=== PATIENT | male | born 1975 | race Caucasian/White ===

== ENCOUNTER 2018-11-14 22:47 | Observation (INO) | payer OTHER ==
[2018-11-14] MEDS ORDERED: ASPIRIN 81 MG PO STA (23:06)
--- NOTE | 2018-11-14 23:06 | ED ---
Chest Pain HPI - General Chief Complaint: Chest Pain Stated Complaint: Chest Pain Time Seen by Provider: 11/14/18 23:00 Source: patient, family Mode of arrival: ambulatory - History of Present Illness Initial Comments: Recent is a 43-year-old gentleman with a past medical history of hypertension, hyperlipidemia and obesity who presents to the emergency department today for evaluation of chest pain. Patient reports he had a stressful day at work today, he reports that around 4 in the afternoon he developed some stabbing retrosternal chest pain with radiation to the left shoulder. Upon returning home patient notes that he also developed a headache and nosebleed and thought that maybe all the stress made his blood pressure go up. Patient reports that he tried to rest and apply cold compress to and he took a shower however his headache resolved his nosebleed resolved but he continued to have stabbing left- sided chest pain radiating to his left shoulder. Patient decided to tell his brother about this pain and is planning to come to the emergency department in the morning if pain persisted however his brother encouraged him to come to the ER immediately for evaluation. Patient does have a strong family history of heart disease, his father at the age of 54 from acute pulmonary embolism. He denies any exertional chest pain, he works in [employer] business and is able to perform his regular work and activities without pain however this afternoon he has pain that does not resolve with rest. - Related Data Home Medications Medication Instructions Recorded Confirmed Atorvastatin [Lipitor] 40 mg PO DAILY 11/14/18 11/14/18 Benazepril HCl 40 mg PO DAILY 11/14/18 11/14/18 Doxazosin (Unknown Dose) 1 tab PO DAILY 11/14/18 11/14/18 Hydrocodone/Acetaminophen [[place] 1 tab PO TID PRN 11/14/18 11/14/18 7.5-325] Ibuprofen [Motrin] 800 mg PO TID PRN 11/14/18 11/14/18 Ranitidine HCl [Zantac] 150 mg PO BID 11/14/18 11/14/18 busPIRone HCl [Buspar] 10 mg PO BID PRN 11/14/18 11/14/18 traZODone HCL 100 mg PO HS 11/14/18 11/14/18 Allergies Allergy/AdvReac Type Severity Reaction Status Date / Time No Known Allergies Allergy Verified 11/14/18 23:10 Review of Systems ROS Statement: Those systems with pertinent positive or pertinent negative responses have been documented in the HPI. ROS Other: All systems not noted in ROS Statement are negative. Past Medical History Past Medical History: Hyperlipidemia, Hypertension Past Surgical History: Cholecystectomy Additional Past Surgical History / Comment(s): right testicle removal 2004 Past Psychological History: No Psychological Hx Reported Smoking Status: Never smoker Past Alcohol Use History: Occasional Past Drug Use History: None Reported General Exam - General Exam Comments Initial Comments: Physical Exam GENERAL: Patient is well-developed and well-nourished. Patient is nontoxic and well- hydrated and is in no distress. HENT: Normocephalic, Atraumatic. EYES: PERRL, EOMI PULMONARY: Unlabored respirations. No audible rales rhonchi or wheezing was noted. CARDIOVASCULAR: There is a regular rate and rhythm without any murmurs gallops or rubs. ABDOMEN: Soft and nontender with normal bowel sounds. SKIN: Skin is clear with no lesions or rashes and otherwise unremarkable. : Deferred NEUROLOGIC: Patient is alert and oriented x3. Moving all extremities spontaneously MUSCULOSKELETAL: Normal extremities with adequate strength and full range of motion. No lower extremity swelling or edema. No calf tenderness. PSYCHIATRIC: Normal psychiatric evaluation Course Vital Signs 11/14/18 11/14/18 11/15/18 22:50 23:32 00:26 Temperature 97.4 F L 98 F Pulse Rate 88 79 86 Respiratory 19 18 18 Rate Blood Pressure 165/110 136/95 124/92 O2 Sat by Pulse 97 98 95 Oximetry Chest Pain MDM - [facility] Patient was seen and evaluated, history is obtained from the patient Patient with left-sided chest pain radiating to the left shoulder, patient also had headache and nosebleed earlier in the day he does have a history of hypertension, this resolved after he took a cold shower however he continued to have chest pain. On arrival the patient is hypertensive 165/110 a full cardiac workup was ordered x-ray and labs are unremarkable however the patient does have multiple risk factors for heart disease including hypertension, hyperlipidemia, obesity and family history as well as male gender, patient was presenting with classic cardiac symptoms at this time I feel the patient would benefit from admission to the hospital for further cardiac workup. care was discussed with the patient's primary care physician Dr. Foster who agrees with plan for placement patient in observation for consult to cardiology. Disposition Clinical Impression: Chest pain Disposition: ADMITTED IP TO THIS HOSP Condition: Stable Referrals: Dayne Foster MD [Primary Care Provider] - 1-2 days
[2018-11-14 23:23] LABS: Basophils # (A) 0.1 k/uL (0-0.2); Basophils % (A) 1 %; Eosinophils # (A) 0.4 k/uL (0-0.7); Eosinophils % (A) 6 %; HCT 44.8 % (39.0-53.0); HGB 14.7 gm/dL (13.0-17.5); Lymphocytes # (A) 1.8 k/uL (1.0-4.8); Lymphocytes % (A) 28 %; MCH 30.2 pg (25.0-35.0); MCHC 32.9 g/dL (31.0-37.0); MCV 91.6 fL (80.0-100.0); Mean Platelet Volume 7.2; Monocytes # (A) 0.5 k/uL (0-1.0); Monocytes % (A) 7 %; Neutrophils # (A) 3.8 k/uL (1.3-7.7); Neutrophils % (A) 57 %; Platelet Count 219 k/uL (150-450); RBC 4.89 m/uL (4.30-5.90); RDW 12.8 % (11.5-15.5); WBC 6.7 k/uL (3.8-10.6)
[2018-11-14 23:34] LABS: ALT 45 U/L (21-72); AST 46 U/L (17-59); African American GFR (CKD) >90 (>60 ml/min/1.73 sqM); Albumin 4.8 g/dL (3.5-5.0); Alkaline Phosphatase 41 U/L (38-126); Anion Gap 10 mmol/L; Blood Urea Nitrogen 19 mg/dL (9-20); Calcium 9.4 mg/dL (8.4-10.2); Carbon Dioxide 25 mmol/L (22-30); Chloride 107 mmol/L (98-107); Glucose 99 mg/dL (74-99); Magnesium 2.1 mg/dL (1.6-2.3); Sodium 142 mmol/L (137-145); Total Bilirubin 0.8 mg/dL (0.2-1.3); Total Protein 8.1 g/dL (6.3-8.2)
--- NOTE | 2018-11-14 23:35 | XR ---
INDICATION: Chest pain COMPARISON: None FINDINGS: Frontal and lateral views of the chest are obtained. The cardiomediastinal silhouette and pulmonary vascularity are within normal limits. Lungs are clear. No pleural the effusion or pneumothorax. Mild degenerative changes of the thoracic spine. No acute osseous findings. IMPRESSION: No acute cardiopulmonary disease.
[2018-11-14 23:38] LABS: Potassium 4.2 mmol/L (3.5-5.1)
[2018-11-14 23:54] LABS: INR 0.9 (<1.2); Partial Thromboplastin Time 25.6 sec (22.0-30.0); Prothrombin Time 10.2 sec (9.0-12.0)
[2018-11-15] MEDS ORDERED: NITROGLYCERIN SL TABS 0.4 MG TAB SUBLINGUAL STA (00:45)
[2018-11-15] MEDS: NITROGLYCERIN OINT 1 INCH/GM PACKET TOPICAL SCH ×3 (01:20→11:52)
[2018-11-15] MEDS ORDERED: METOPROLOL TARTRATE 5 MG/5 ML VIAL IVP ONE (08:04)
[2018-11-15] MEDS ORDERED: DOBUTamine DRIP for NUC MED 500 MG in DEXTROSE/WATER 1 250ML.BAG IV ONE (09:09)
[2018-11-15 09:21] VITALS: BMI 38.8
[2018-11-15] MEDS ORDERED: IBUPROFEN 800 MG TAB PO PRN (10:34)
[2018-11-15] MEDS ORDERED: ATROPINE SULFATE 0.1 MG/ML 10ML SYRINGE ONE (10:40)
[2018-11-15] MEDS ORDERED: LISINOPRIL 20 MG TAB PO SCH (10:45)
[2018-11-15] MEDS ORDERED: FAMOTIDINE 20 MG TAB PO SCH (10:45)
[2018-11-15] MEDS ORDERED: DOXAZOSIN 4 MG TAB PO SCH (10:45)
[2018-11-15 11:28] VITALS: BP 120/87; PULSE 80; RESP 16; TEMP 98.2
--- NOTE | 2018-11-15 11:32 | P.STRESS ---
- Stress Test Note Stress Test Results/Findings: Exam Performed: dobutamine stress echo Exam Date: 11/15/18 Reason for Exam: CHEST PAIN Height: 6 ft 3 in Weight: 141.067 kg Protocol: DOBUTAMINE STRESS ECHO Stage: 5 Duration of Exercise: 13:49 MINUTES Resting Heart Rate: 63 Resting Blood Pressure: 121/79 Maximum Achieved Heart Rate: 158 Maximum Achieved Blood Pressure: 170/53 85% PMHR: 15 100% PMHR: 176 METS: ------- Technologist Comment: 1 mg ATROPINE GIVEN & 2.5 mg LOPRESSOR GIVEN Stress Test Results/Findings: This is a 43-year-old gentleman with history of hypertension, hypercholesterolemia and family history of ischemic heart disease and also smoking history was admitted to the hospital with chest pain. Stress data: Baseline EKG showed sinus rhythm with normal NM interval and QRS duration. Blood pressure at rest is 120/79, pulse rate of 63. A standard dose of dobutamine was initiated at 10 mics and was titrated to maximum 40 mics, achieving a maximal heart rate of 158 with a blood pressure 168/53. EKGs taken during and after the exercise did not reveal any significant changes to sized ischemia. Cardiac arrhythmia in the form of PVCs and bigeminal pattern was noted during dobutamine infusion. New Echo data: Baseline echo images showed normal wall motion and thickening. Images taken at low-dose and high-dose dobutamine showed progressive augmentation of wall motion and thickening in all segments. Final impression: #1. Negative dobutamine stress test #2. Negative dobutamine stress echo
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
--- NOTE | 2018-11-15 13:03 | DS ---
DISCHARGE SUMMARY CHIEF COMPLAINT: Chest pain. HISTORY OF PRESENT ILLNESS AND PHYSICAL EXAM: Details of this man's history and physical can be found in the initial workup. LABORATORY STUDIES: While he was in a hospital he had laboratory studies, details of which can be found in the laboratory section of his chart. COURSE IN HOSPITAL: After admission, he was placed on bedrest, started on intravenous fluids and serial EKGs and enzymes are normal. He was seen by Cardiology and taken for a stress study which was negative. It was felt he could be discharged. He will go home on his usual activity, diet and medication and will add aspirin 1 tablet a day. He will be seen in the office in several days. FINAL DIAGNOSES: 1. Atypical chest pain. 2. Hypertension. OPERATIONS: None. CONSULTATION: Cardiology. He is improved. MMJIMBOL / BAMBI: [id number] /
[2018-11-15] MEDS ORDERED: traZODone HCL 100 MG TAB PO SCH (21:00)
[2018-11-16] MEDS ORDERED: ASPIRIN 325 MG TAB PO SCH (09:00)
--- NOTE | 2018-11-17 17:05 | ECHOS ---
Stress Test Results/Findings: Exam Performed: dobutamine stress echo Exam Date: 11/15/18 Reason for Exam: CHEST PAIN Height: 6 ft 3 in Weight: 141.067 kg Protocol: DOBUTAMINE STRESS ECHO Stage: 5 Duration of Exercise: 13:49 MINUTES Resting Heart Rate: 63 Resting Blood Pressure: 121/79 Maximum Achieved Heart Rate: 158 Maximum Achieved Blood Pressure: 170/53 85% PMHR: 15 100% PMHR: 176 METS: ------- Technologist Comment: 1 mg ATROPINE GIVEN & 2.5 mg LOPRESSOR GIVEN Stress Test Results/Findings: This is a 43-year-old gentleman with history of hypertension, hypercholesterolemia and family history of ischemic heart disease and also smoking history was admitted to the hospital with chest pain. Stress data: Baseline EKG showed sinus rhythm with normal NE interval and QRS duration. Blood pressure at rest is 120/79, pulse rate of 63. A standard dose of dobutamine was initiated at 10 mics and was titrated to maximum 40 mics, achieving a maximal heart rate of 158 with a blood pressure 168/53. EKGs taken during and after the exercise did not reveal any significant changes to sized ischemia. Cardiac arrhythmia in the form of PVCs and bigeminal pattern was noted during dobutamine infusion. New Echo data: Baseline echo images showed normal wall motion and thickening. Images taken at low-dose and high-dose dobutamine showed progressive augmentation of wall motion and thickening in all segments. Final impression: #1. Negative dobutamine stress test #2. Negative dobutamine stress echo MTDD
== END 2018-11-15 12:25 | disposition home or self-care (01) ==
LOC: EC 22:47 → 1SOBS 11-15 00:54
PROVIDERS: ADMIT Family Medicine; ATTEND Family Medicine
DX: R07.89 Other chest pain (principal); R04.0 Epistaxis; R06.02 Shortness of breath; R61 Generalized hyperhidrosis; I10 Essential (primary) hypertension; E78.00 Pure hypercholesterolemia, unspecified; E78.5 Hyperlipidemia, unspecified; F41.9 Anxiety disorder, unspecified; E66.9 Obesity, unspecified; Z68.38 Body mass index [BMI] 38.0-38.9, adult; Z79.899 Other long term (current) drug therapy; Z90.49 Acquired absence of other specified parts of digestive tract; Z90.79 Acquired absence of other genital organ(s); Z87.891 Personal history of nicotine dependence; Z91.030 Bee allergy status; Z82.49 Family history of ischemic heart disease and other diseases of the circulatory system
CPT/HCPCS: 99285; 36415; 93005; 93351; 85379; 80053; 83735; 84484 ×2; 85025; 85610; 85730; 71046; G0378; J1250; J0461

== ENCOUNTER 2019-05-13 04:21 | Emergency (ER) | payer OTHER ==
--- NOTE | 2019-05-13 04:25 | ED ---
Back Pain HPI - General Stated Complaint: fall Time Seen by Provider: 05/13/19 04:24 - History of Present Illness Initial Comments: Markie is a pleasant 44-year-old gentleman is brought to the ER today by ambulance for evaluation of back pain. Patient states that he has had chronic back pain for a number of years she follows with neurology. He had an epidural injection today for his back pain and reports he was feeling so good that he decided to go out and sink area okay. Patient states he is feeling great step off the stage funny and heard a pop in his back. Pain progressively worsened throughout the rest the evening feeling like a muscle spasm in his right lower back. Patient left the bar and went home around 2 AM and after laying in bed for over an hour couldn't tolerate the pain anymore and decided to come to the ER for further evaluation. Patient states he doesn't have any weakness in his legs that the only reason he can't walk is due to pain. He doesn't have any numbness tingling. He's had no trouble urinating since the pain began. No saddle anesthesia. Patient states he knows that to answer all his questions because he is asked about every time he is evaluated for back pain. - Related Data Home Medications Medication Instructions Recorded Confirmed Atorvastatin [Lipitor] 40 mg PO DAILY 11/14/18 11/14/18 Benazepril HCl 40 mg PO DAILY 11/14/18 11/14/18 Hydrocodone/Acetaminophen [[place] 1 tab PO TID PRN 11/14/18 11/14/18 7.5-325] Ibuprofen [Motrin] 800 mg PO TID PRN 11/14/18 11/14/18 Ranitidine HCl [Zantac] 150 mg PO BID 11/14/18 11/14/18 busPIRone HCl [Buspar] 10 mg PO BID PRN 11/14/18 11/14/18 traZODone HCL 100 mg PO HS 11/14/18 11/14/18 Doxazosin [Cardura] 4 mg PO DAILY 11/15/18 11/15/18 Previous Rx's Medication Instructions Recorded Aspirin 325 mg PO DAILY #100 tab 11/15/18 Allergies Allergy/AdvReac Type Severity Reaction Status Date / Time No Known Allergies Allergy Verified 11/14/18 23:10 Review of Systems ROS Statement: Those systems with pertinent positive or pertinent negative responses have been documented in the HPI. ROS Other: All systems not noted in ROS Statement are negative. Past Medical History Past Medical History: GERD/Reflux, Hyperlipidemia, Hypertension, Pneumonia Additional Past Medical History / Comment(s): Bronchitis as a child, chronic low back pain (2 bulging discs) and chronic cervical pain (deteriorating cervical discs) History of Any Multi-Drug Resistant Organisms: None Reported Past Surgical History: Cholecystectomy Additional Past Surgical History / Comment(s): right testicle removal 2004 Past Anesthesia/Blood Transfusion Reactions: No Reported Reaction Smoking Status: Former smoker - Past Family History Father Family Medical History: Pulmonary Embolus Additional Family Medical History / Comment(s): Father of a PE at the age of 54 yrs. Mother Family Medical History: Diabetes Mellitus Additional Family Medical History / Comment(s): Mother had multiple fractures R side of body post fall and was wheelchair bound. She is . General Exam - General Exam Comments Initial Comments: Physical Exam GENERAL: Patient is well-developed and well-nourished. Patient is nontoxic and well-hydrated and is in no distress. HENT: Normocephalic, Atraumatic. EYES: PERRL, EOMI PULMONARY: Unlabored respirations. CARDIOVASCULAR: RRR Warm and well perfused extremities ABDOMEN: Non-distended SKIN: No rashes or bruising : Deferred NEUROLOGIC: Alert and oriented Normal speech MUSCULOSKELETAL: Moving all extremities Normal strength and sensation in lower extremities Back exam with very small injection point the lower lumbar spine, no large hematoma. There is a likely lipoma lateral to the injection site patient reports this is chronic and unchanged. No tenderness to bony palpation. PSYCHIATRIC: No SI/HI Course Vital Signs 05/13/19 04:24 Temperature 97.6 F Pulse Rate 67 Respiratory 18 Rate Blood Pressure 107/76 O2 Sat by Pulse 98 Oximetry Medical Decision Making - Medical Decision Making The patient was seen and evaluated history is obtained from patient. Patient reports he overdid it with physical activity after receiving an epidural injection in his back today. Patient reports he is taking advantage of being pain-free and subsequently injured his back. Unable to tolerate the pain. No red flag symptoms. Patient received IM analgesia and muscle relaxers. Upon reevaluation pain had decreased from 10 out of 10 to a 4 out of 10 was tolerable patient was comfortable with plan for discharge home. Disposition Clinical Impression: Mechanical back pain Disposition: HOME SELF-CARE Condition: Stable Instructions (If sedation given, give patient instructions): Acute Low Back Pain (ED) Is patient prescribed a controlled substance at d/c from ED?: No Referrals: Dayne Foster MD [Primary Care Provider] - 1-2 days
[2019-05-13 04:27] VITALS: BP 107/76; PULSE 67; RESP 18; TEMP 97.6
[2019-05-13] MEDS ORDERED: ORPHENADRINE 30 MG/ML 2 ML VIAL IM STA (05:12)
[2019-05-13] MEDS ORDERED: HYDROmorphone 1 MG/ML 1 ML SYRINGE IM STA (05:12)
== END 2019-05-13 06:54 | disposition home or self-care (01) ==
LOC: EC 04:21
DX: M54.9 Dorsalgia, unspecified (principal); K21.9 Gastro-esophageal reflux disease without esophagitis; E78.5 Hyperlipidemia, unspecified; I10 Essential (primary) hypertension; Z87.891 Personal history of nicotine dependence; Z79.899 Other long term (current) drug therapy
CPT/HCPCS: 99283; 96372 ×2; J2360; J1170

== ENCOUNTER 2019-05-29 08:35 | Emergency (ER) | payer OTHER ==
[2019-05-29] MEDS ORDERED: DIAZEPAM 5 MG/ML 2 ML INJ IVP STA (09:11)
[2019-05-29] MEDS ORDERED: KETOROLAC 30 MG/ML 1 ML VIAL IVP STA (09:11)
[2019-05-29] MEDS ORDERED: HYDROcodone/APAP 7.5-325MG 1 EACH TAB PO ONE (09:12)
--- NOTE | 2019-05-29 09:23 | ED ---
Fall HPI - General Chief Complaint: Fall Stated Complaint: fall, back/knee pain Time Seen by Provider: 05/29/19 09:00 Source: EMS Mode of arrival: EMS - History of Present Illness Initial Comments: Patient is a 44-year-old male presenting to the emergency department via EMS after falling at his house today. Patient states he was on the top step of the stairs when his left knee buckled and he fell forward. Patient states he is complaining of pain in his left knee which he has a history of osteoarthritis for years now. Patient also has chronic back pain and states this fall hurt his lower back as well. He does see a neurologist and a pain specialist. He normally takes [place] 7.57 home. He denies any numbness and tingling into his lower extremities at this time or bowel or bladder incontinence. He denies hitting his head, no LOC. No right knee pain, no belly pain. He has no other complaints at this time. Patient did receive fentanyl and Zofran in the EMS prior to arrival. Upon arrival to ER, his vital signs are stable. - Related Data Home Medications Medication Instructions Recorded Confirmed Atorvastatin [Lipitor] 40 mg PO DAILY 11/14/18 11/14/18 Benazepril HCl 40 mg PO DAILY 11/14/18 11/14/18 Hydrocodone/Acetaminophen [[place] 1 tab PO TID PRN 11/14/18 11/14/18 7.5-325] Ibuprofen [Motrin] 800 mg PO TID PRN 11/14/18 11/14/18 Ranitidine HCl [Zantac] 150 mg PO BID 11/14/18 11/14/18 busPIRone HCl [Buspar] 10 mg PO BID PRN 11/14/18 11/14/18 traZODone HCL 100 mg PO HS 11/14/18 11/14/18 Doxazosin [Cardura] 4 mg PO DAILY 11/15/18 11/15/18 Previous Rx's Medication Instructions Recorded Aspirin 325 mg PO DAILY #100 tab 11/15/18 Cyclobenzaprine [Flexeril] 10 mg PO BID PRN #15 tab 05/29/19 Allergies Allergy/AdvReac Type Severity Reaction Status Date / Time No Known Allergies Allergy Verified 11/14/18 23:10 Review of Systems ROS Statement: Those systems with pertinent positive or pertinent negative responses have been documented in the HPI. ROS Other: All systems not noted in ROS Statement are negative. Past Medical History Past Medical History: GERD/Reflux, Hyperlipidemia, Hypertension, Pneumonia Additional Past Medical History / Comment(s): Bronchitis as a child, chronic low back pain (2 bulging discs) and chronic cervical pain (deteriorating cervical discs) History of Any Multi-Drug Resistant Organisms: None Reported Past Surgical History: Cholecystectomy Additional Past Surgical History / Comment(s): right testicle removal 2004 Past Anesthesia/Blood Transfusion Reactions: No Reported Reaction Past Psychological History: No Psychological Hx Reported Smoking Status: Former smoker Past Alcohol Use History: None Reported Past Drug Use History: None Reported - Past Family History Father Family Medical History: Pulmonary Embolus Additional Family Medical History / Comment(s): Father of a PE at the age of 54 yrs. Mother Family Medical History: Diabetes Mellitus Additional Family Medical History / Comment(s): Mother had multiple fractures R side of body post fall and was wheelchair bound. She is . General Exam - General Exam Comments Initial Comments: GENERAL: Well-appearing, well-nourished and in mild distress secondary to pain. HEAD: Atraumatic, normocephalic. EYES: Pupils equal round and reactive to light, extraocular movements intact, sclera anicteric, conjunctiva are normal. ENT: TMs normal, nares patent, oropharynx clear without exudates. Moist mucous membranes. NECK: Normal range of motion, supple without lymphadenopathy or JVD. LUNGS: Breath sounds clear to auscultation bilaterally and equal. No wheezes rales or rhonchi. HEART: Regular rate and rhythm without murmurs, rubs or gallops. ABDOMEN: Soft, nontender, normoactive bowel sounds. No guarding, no rebound. No masses appreciated. : Deferred EXTREMITIES: Palpation of the anterior portion of the left knee. Minimal swelling present, no deformity seen. Patient has limited range of motion secondary to his pain. Flexion of the knee also causes pain and also lower back. Sensation is equal in bilateral lower extremities. Strength is 5 out of 5 in bilateral lower extremities although painful with hip flexion bilaterally secondary to low back pain. NEUROLOGICAL: Cranial nerves II through XII grossly intact. Normal speech. Patient is able to ambulate. PSYCH: Normal mood, normal affect. SKIN: Warm, Dry, normal turgor, no rashes or lesions noted. Limitations: no limitations Course Vital Signs 05/29/19 05/29/19 05/29/19 08:46 08:50 09:00 Temperature 97.5 F L Pulse Rate 71 72 Respiratory 20 20 Rate Blood Pressure 127/84 127/84 O2 Sat by Pulse 94 L 94 L Oximetry 05/29/19 05/29/19 05/29/19 09:30 09:50 10:00 Temperature Pulse Rate Respiratory 20 Rate Blood Pressure 115/83 111/79 O2 Sat by Pulse 96 97 Oximetry 05/29/19 05/29/19 05/29/19 10:30 10:50 11:00 Temperature Pulse Rate Respiratory 20 Rate Blood Pressure 107/63 108/93 O2 Sat by Pulse 98 97 Oximetry Medical Decision Making - Medical Decision Making Patient is a 44-year-old male presenting via EMS for left knee pain and low back pain after he fell. No LOC, no head injury. X-rays of left knee and lumbar spine show no acute fractures or deformities. Alignment is normal. I discussed these findings with the patient. Patient was given pain medication as well as Valium and reports improvement in his symptoms. He is stable for discharge at this time. Patient will be given a starter pack of pain medicine and will follow up with his neurosurgeon regarding his back pain. Patient will also be given orthopedic referral for his ongoing left knee pain. He is in agreement with this plan of care. Return parameters were discussed with the patient and he verbalized understanding. Case discussed with Dr. Hall. Disposition Clinical Impression: Fall, Left knee pain, Low back pain Disposition: HOME SELF-CARE Condition: Stable Instructions (If sedation given, give patient instructions): Low Back Strain (ED) Additional Instructions: Please return to the Emergency Department if symptoms worsen or any other concerns. Follow-up with neurosurgeon regarding low back pain. Referral was given for left knee pain. Continue to take regular medications as prescribed. Prescriptions: Cyclobenzaprine [Flexeril] 10 mg PO BID PRN #15 tab PRN Reason: Muscle Spasm Is patient prescribed a controlled substance at d/c from ED?: No Referrals: Dayne Foster MD [Primary Care Provider] - 1-2 days
--- NOTE | 2019-05-29 10:39 | XR ---
EXAMINATION TYPE: XR knee complete LT DATE OF EXAM: 05/29/2019 CLINICAL HISTORY: Fall injury today with pain TECHNIQUE: Three views of the left knee are obtained. COMPARISON: None. FINDINGS: There is no acute fracture/dislocation evident in left knee. The tri-compartment joint sp aces appear within normal limits. The overlying soft tissue appears unremarkable. IMPRESSION: There is no acute fracture or dislocation in the left knee.
--- NOTE | 2019-05-29 10:44 | XR ---
EXAMINATION TYPE: XR lumbar spine 2 or 3V DATE OF EXAM: 05/29/2019 CLINICAL HISTORY: Fall with back pain TECHNIQUE: Frontal and lateral images of the lumbar spine are obtained. COMPARISON: None FINDINGS: There are 5 lumbar type vertebral bodies identified. The lumbar spine shows satisfactory alignment without evidence of acute fracture or dislocation. Vertebral body heights and disk space he ights are within normal limits. Cholecystectomy clips are noted. The overlying soft tissue appears u nremarkable. IMPRESSION: No acute fracture or malalignment is seen in the lumbar spine.
[2019-05-29] MEDS ORDERED: traMADol 50 MG STARTER PACK 3 TAB BTL PO STA (11:03)
[2019-05-29 11:31] VITALS: BP 112/80; PULSE 81; RESP 16; TEMP 98
== END 2019-05-29 11:30 | disposition home or self-care (01) ==
LOC: EC 08:35
DX: M25.562 Pain in left knee (principal); M79.89 Other specified soft tissue disorders; M54.5 Low back pain; M19.90 Unspecified osteoarthritis, unspecified site; K21.9 Gastro-esophageal reflux disease without esophagitis; E78.5 Hyperlipidemia, unspecified; I10 Essential (primary) hypertension; Z87.891 Personal history of nicotine dependence; Z79.1 Long term (current) use of non-steroidal anti-inflammatories (NSAID); Z79.899 Other long term (current) drug therapy; W10.9XXA Fall (on) (from) unspecified stairs and steps, initial encounter; Y93.01 Activity, walking, marching and hiking; Y92.009 Unspecified place in unspecified non-institutional (private) residence as the place of occurrence of the external cause
CPT/HCPCS: 99284; 96374; 96375; 72100; 73562; J3360; J1885